=== PATIENT | female | born 1950 | race Caucasian/White ===

== ENCOUNTER 2024-09-10 10:40 | Outpatient (CLI) | payer MEDICARE, SELFPAY | END 2024-09-10 10:41 | disposition home or self-care (01) | LOC: FRMREF 10:41 | PROVIDERS: PCP Physician Assistant Medical; Visit Provider Physician Assistant Medical | DX: E78.2 Mixed hyperlipidemia (principal); I10 Essential (primary) hypertension; F41.8 Other specified anxiety disorders; R30.0 Dysuria | CPT/HCPCS: 80053; 80061; 84443; 87086 ==

== ENCOUNTER 2024-12-18 13:02 | Outpatient (CLI) | payer MEDICARE, SELFPAY ==
--- NOTE | 2024-12-18 13:20 | CRLHL7_ITS ---
For Patients: As a result of the Century Cures Act, medical imaging exams and procedure reports are released immediately into your electronic medical record. You may view this report before your referring provider. If you have questions, please contact your health care provider. INDICATION: BILATERAL SCREENING MAMMOGRAM, ASYMPTOMATIC 74 Y/O FEMALE COMPARISON: 08/06/2023, 06/30/2022, 04/15/2021 TECHNIQUE: Digital mammogram in CC and MLO projections including computer-aided detection (CAD) and tomosynthesis. BREAST COMPOSITION: There are scattered areas of fibroglandular density. FINDINGS: No suspicious findings. ASSESSMENT: BI-RADS 1 Negative RECOMMENDATION: Annual screening mammogram. A lay language report of this examination will be provided to the patient. Dictated by: Romero Alejandro MD @ 12/22/2024 12:37:03 (Electronically Signed)
== END 2024-12-18 13:03 | disposition home or self-care (01) ==
LOC: MAMMO 13:03
PROVIDERS: PCP Physician Assistant Medical; Visit Provider Physician Assistant Medical
DX: Z12.31 Encounter for screening mammogram for malignant neoplasm of breast (principal)
CPT/HCPCS: 77063; 77067

== ENCOUNTER 2024-12-30 13:37 | Outpatient (CLI) | payer MEDICARE, SELFPAY | END 2024-12-30 13:38 | disposition home or self-care (01) | LOC: NFLDREF 12-31 12:54 | PROVIDERS: PCP Physician Assistant Medical; Referring Provider Physician Assistant Medical; Visit Provider Physician Assistant Medical | DX: Z01.818 Encounter for other preprocedural examination (principal); L50.9 Urticaria, unspecified; D50.9 Iron deficiency anemia, unspecified; E87.6 Hypokalemia; R53.82 Chronic fatigue, unspecified; Z79.899 Other long term (current) drug therapy | CPT/HCPCS: 82306; 82607; 82728; 84443 ==